=== PATIENT | female | born 1990 | race Two or more races ===

== ENCOUNTER 2018-01-26 08:13 | Day surgery (SDC) | payer OTHER ==
[2018-01-25 14:18] VITALS: BMI 31.9
--- NOTE | 2018-01-25 16:39 | HP ---
Admitting History and Physical - Admission Chief Complaint: Snoring and nasal obstruction History of Present Illness: 27 yo female with chronic nasal obstruction, snoring with moderate RADHA and enlarged tonsils who presents for septo/SMR and tonsillectomy. History Source: Patient Limitations to Obtaining History: No Limitations - Past Medical History Gastrointestinal: Yes: GERD ...LMP: 01/04/18 Psych: Yes: Depression ENT: Yes: Other (RADHA- AHI=24) - Smoking History Smoking history: Never smoked - Alcohol/Substance Use Hx Alcohol Use: No Home Medications - Allergies Allergies/Adverse Reactions: Allergies Allergy/AdvReac Type Severity Reaction Status Date / Time Penicillins Allergy Intermediate Hives Verified 01/25/18 14:09 - Home Medications Home Medications: Ambulatory Orders Alprazolam [Xanax] 1 mg PO PRN PRN 01/25/18 Norethindrone AC-Eth Estradiol [Microgestin 21 1-20 Tablet] 1 each PO DAILY Sertraline HCl [Zoloft] 150 mg PO DAILY 01/25/18 Review of Systems - Review of Systems Constitutional: reports: No Symptoms HENT: reports: Nasal Congestion, Other (snoring) Neck: reports: No Symptoms Physical Examination Constitutional: Yes: Well Nourished, No Distress Eyes: Yes: WNL HENT: Yes: Other (deviated septum, enlarged 3-4+tonsils and Inf turbinate hypertrophy) Neck: Yes: WNL Cardiovascular: Yes: WNL Respiratory: Yes: WNL Neurological: Yes: Cran Nerves II-XII Intact Problem List - Problems (1) Deviated septum Assessment/Plan: Nasal obstruction- for septo/SMR of turbs Code(s): J34.2 - DEVIATED NASAL SEPTUM (2) Tonsillar hypertrophy Assessment/Plan: Enlarged tonsils with infections- will procede with tonsillectomy Code(s): J35.1 - HYPERTROPHY OF TONSILS (3) RADHA (obstructive sleep apnea) Assessment/Plan: Moderate RADHA - will observe for 23 hr stay post-op Code(s): G47.33 - OBSTRUCTIVE SLEEP APNEA (ADULT) (PEDIATRIC)
[2018-01-26] MEDS ORDERED: PROMETHAZINE HCL 25 MG/1 ML VIAL IVPUSH PRN (09:45)
[2018-01-26] MEDS ORDERED: LACTATED RINGERS SOLUTION 1,000 ML IV SCH (09:45)
[2018-01-26] MEDS ORDERED: ONDANSETRON 4 MG/2 ML VIAL IVPUSH PRN (09:45)
--- NOTE | 2018-01-26 09:47 | HP ---
History & Physical Update - History History: No Change - Physical Physical: No Change - Assessment Assessment: No Change - Plan Plan: No Change (No change from H&P dated 01/25/2018)
[2018-01-26] MEDS ORDERED: BUPIVACAINE HCL/PF 0.25% (2.5MG/ML) 10 ML VIAL ONE (10:18)
[2018-01-26] MEDS ORDERED: LIDOCAINE 1%/EPI 1:100000 (20 ML MULTI DOSE VIAL) ONE (10:18)
[2018-01-26] MEDS ORDERED: BUPIVACAINE HCL/PF 0.25% (2.5MG/ML) 10 ML VIAL IJ ONE ×3 (10:55)
[2018-01-26] MEDS ORDERED: LIDOCAINE 1%/EPI 1:100000 (50 ML MULTI DOSE VIAL) INF ONE ×2 (10:55)
[2018-01-26] MEDS ORDERED: BUPIVACAINE HCL/PF 0.5% (5MG/ML) 10 ML VIAL IJ ONE (10:55)
[2018-01-26] MEDS ORDERED: COCAINE HCL 4% TOPICAL SOLUTION 4 ML BOTTLE TP ONE (10:55)
[2018-01-26] MEDS ORDERED: oxyCODONE HCL 5 MG TABLET PO PRN (12:12)
[2018-01-26] MEDS ORDERED: ACETAMINOPHEN 325 MG TABLET (FP) PO PRN (12:14)
--- NOTE | 2018-01-26 12:43 | OP ---
DATE OF OPERATION: 01/26/2018 PREOPERATIVE DIAGNOSES: 1. Tonsillar hypertrophy with moderate obstructive sleep apnea. 2. Nasal obstruction secondary to deviated nasal septum. 3. Bilateral inferior turbinate hypertrophy with obstruction. POSTOPERATIVE DIAGNOSES: 1. Tonsillar hypertrophy with moderate obstructive sleep apnea. 2. Nasal obstruction secondary to deviated nasal septum. 3. Bilateral inferior turbinate hypertrophy with obstruction. PROCEDURE: 1. Tonsillectomy. 2. Septoplasty. 3. Submucous resection bilateral inferior turbinates. ANESTHESIA: General, Antony Lehey, WOOD PATTERNMAKER APPRENTICE BLOOD LOSS: 10 mL combined. FINDINGS: 1. Markedly enlarged tonsils with obstruction. 2. Markedly deviated nasal septum to the left with obstruction. 3. Bilateral inferior turbinate hypertrophy. INDICATION: The patient is a 27-year-old female with chronic upper airway obstruction, moderate sleep apnea, nasal obstruction, enlarged tonsils all unrelieved with medical therapy. The patient presents for surgical intervention. Risks, benefits, and alternatives of the procedure were all explained to the patient. Questions were answered, and consent was signed. DESCRIPTION OF PROCEDURE: After obtaining informed consent, the patient was brought to the operating room and placed on the OR table in supine position. After induction of general endotracheal anesthesia, she was prepped and draped in the usual sterile fashion. The table was turned. A shoulder roll was placed under the patient. The head was extended. A McIvor mouth gag was placed in the oral cavity and opened. Markedly enlarged tonsils were noted. Red rubber catheter was placed to help elevate the soft palate. An Allis clamp was used to grasp the superior pole of the right tonsil. Using the Coblation wand, incision was made in the anterior tonsillar pillar. Dissection was carried down from a superior to inferior and anterior to posterior fashion with excision of the tonsil at its base. Further hemostasis was achieved in the tonsillar fossa with coagulation portion of the Coblator. Once completed, no active bleeding was seen. Attention was then turned to the left tonsil. Again, Allis clamp was used to grasp the superior pole. Incision was made with a Coblator in the anterior tonsillar pillar. Dissection was carried down from a superior to inferior and anterior to posterior fashion with excision of the tonsil at its base. Again, further hemostasis was achieved using the coagulation portion of the Coblator. Once completed, airway appeared improved. No active bleeding was seen. Then 3 mL of 0.25% Marcaine was injected into the soft palate and tonsillar fossa. This ended this portion of the procedure. The patient was then repositioned, redraped. Then 4% cocaine-soaked nasal pledgets were placed in the nasal cavities for decongestion and topical anesthesia. Then 5 mL of 1% lidocaine with epinephrine was then injected into the nasal septal flap and inferior turbinates. After allowing time for anesthesia to take effect, a No. 15 blade was used to make a left hemitransfixion incision. Left-sided mucoperichondrial flap was raised over a markedly deviated bony and cartilaginous septum with spur with obstruction. The flap was raised intact above the spur, small tear below the spur. Septum was isolated. Incision was made through the septal cartilage anterior to the deflection. A large dorsal caudal L strut was left intact. Opposite side flap was raised intact. Septum was then isolated using sharp dissection with a swivel knife. The cartilaginous portion of the septum was removed. Using an osteotome, the bony spur was removed as well. Once completed, the airway was markedly improved. No further obstruction was noted. Incision was then closed with a 4-0 chromic suture. The septal flaps were then reapproximated with a 4-0 plain gut quilting stitch. This ended this portion of the procedure. Attention was then turned to the inferior turbinates. The left inferior turbinate was medialized. A stab incision was made in the anterior tip. Submucosal dissection was carried out with isolation of the turbinate bone. Anterior portion was removed with the Geoffrey forceps. Suction Bovie cauterization of the flaps was then performed. The flaps were then reapproximated and the turbinate lateralized. Next, attention was turned to the right turbinate where, again, medialized. A stab incision was made. Submucosal dissection was carried out. Anterior portion of the turbinate bone was removed. Intramural cauterization was performed with approximation of the flaps and lateralization of the turbinate. Airway appeared clear. No active bleeding was seen. Firm Medipore supple packing was placed intranasally with bacitracin-coated Telfa at the tip. This ended the procedure. The patient was awoken from anesthesia, extubated, and transferred to the recovery room awake, alert, and in stable condition. HIRAM PARMAR M.D. [id number]
[2018-01-26] MEDS: DEXTROSE 5%-0.45% SALINE 1,000 ML IV SCH (14:04)
[2018-01-26] MEDS: oxyCODONE HCL 5 MG TABLET PO PRN ×2 (16:25→21:58)
[2018-01-26] MEDS: ACETAMINOPHEN 500 MG TABLET (FP) PO PRN (23:29)
[2018-01-27] MEDS: oxyCODONE HCL 5 MG TABLET PO PRN ×2 (04:50→09:57)
[2018-01-27] MEDS: DEXTROSE 5%-0.45% SALINE 1,000 ML IV SCH (04:55)
[2018-01-27 05:47] VITALS: BP 118/70; PULSE 72; TEMP 98.6
[2018-01-27] MEDS: ACETAMINOPHEN 500 MG TABLET (FP) PO PRN (05:56)
--- NOTE | 2018-01-27 14:11 | PATH ---
Surgical Pathology Report Patient Name: CLAUDIA MIKE [facility]. Rec. #: [id number] /Age/Gender: 1990 (Age: 27) / F Account: [id number] Location: AMBULATORY SURG Taken: 01/26/2018 Received: 01/26/2018 Reported: 01/27/2018 Physicians: Raj Demarco M.D. Specimen(s) Received A: RIGHT TONSIL B: LEFT TONSIL C: NASAL SEPTUM AND INFERIOR TURBINATES Clinical History Deviated nasal septum/hyper nasal turbinates/tonsillitis Final Diagnosis A. TONSIL, RIGHT, TONSILLECTOMY: TONSIL WITH REACTIVE LYMPHOID HYPERPLASIA. B. TONSIL, LEFT, TONSILLECTOMY: TONSIL WITH REACTIVE LYMPHOID HYPERPLASIA. C. NASAL SEPTUM AND INFERIOR TURBINATES, SEPTOPLASTY AND SUBMUCOUS RESECTION OF BILATERAL INFERIOR TURBINATES: FRAGMENTS OF BENIGN CARTILAGE, RESPIRATORY MUCOSA, AND BONE Electronically Signed Jennie Graves M.D. Gross Description A. Received in formalin labeled "right tonsil," is a 2.7 x 2.0 x 1.3 cm ovoid portion of soft tissue, consistent with a tonsil. The outer surface is arredondo-pink, convoluted and varies from smooth to cauterized. Sectioning reveals arredondo-pink, smooth parenchyma with cryptic architecture. No discrete lesions are identified. A welding equipment sales representative section is submitted in one cassette. B. Received in formalin labeled "left tonsil," is a 2.5 x 1.6 x 1.4 cm ovoid portion of soft tissue, consistent with a tonsil. The outer surface is arredondo-pink, convoluted and varies from smooth to cauterized. Sectioning reveals arredondo-pink, smooth parenchyma with cryptic architecture. No discrete lesions are identified. A welding equipment sales representative section is submitted in one cassette. C. Received in formalin labeled "nasal septum and inferior turbinates," is a 3.4 x 1.8 x 0.2 cm aggregate of arredondo, irregular portions of bone and cartilage. Technology Lab Teacher sections are submitted in one cassette, following decalcification. /01/26/2018 saudi/01/26/2018
== END 2018-01-27 11:28 | disposition home or self-care (01) ==
LOC: JASU-SURG 08:13 → JASUSAT 08:13 → J6S 14:55 → JASUSAT 01-27 11:28
PROVIDERS: ATTEND Otolaryngology
PROC: 09BM8ZZ Excision of Nasal Septum, Via Natural or Artificial Opening Endoscopic (ICD-10-PCS; 2018-01-26)
PROC: 09TL8ZZ Resection of Nasal Turbinate, Via Natural or Artificial Opening Endoscopic (ICD-10-PCS; 2018-01-26)
PROC: 0CTPXZZ Resection of Tonsils, External Approach (ICD-10-PCS; principal; 2018-01-26 09:30)
DX: J35.1 Hypertrophy of tonsils (principal); J34.2 Deviated nasal septum; J34.3 Hypertrophy of nasal turbinates; G47.33 Obstructive sleep apnea (adult) (pediatric)
CPT/HCPCS: 84703; 88304-TC; 88311-TC; 94760